=== PATIENT | female | born 1955 | race Caucasian/White ===

== ENCOUNTER 2017-02-17 23:27 | Emergency (ER) | payer OTHER ==
[~2017-02-17] VITALS: Ht 167.6 cm; Wt 82.6 kg
[~2017-02-17 23:27] MED LIST: ANAPROX DS550 M1 PO; ASPIRIN81 M1 PO; Bactrim,Septra DS 80 PO; COZAAR100 MG PO; COZAAR50 MG PO; GLUCOPHAGE500 MG PO; METFORMIN HCL500 MG PO; Motrin PO; NOHOMEMEDS; SIMVASTATIN5 MG PO; ZOLOFT100 MG PO
[2017-02-18 01:11] LABS: POINT-OF-CARE METER ID UU13113702
[2017-02-18] MEDS ORDERED: NORCO 5/3251 TABLET PO (01:13)
[2017-02-18 01:46] VITALS: BP 126/41
== END 2017-02-18 01:47 | disposition home or self-care (01) ==
LOC: EXP 23:27 → EME 23:27 → EXP 02-18 01:47
PROVIDERS: Physician Assistant
PROC: 3E0234Z Introduction of Serum, Toxoid and Vaccine into Muscle, Percutaneous Approach (ICD-10-PCS; principal; 2017-02-17)
DX: S82.002A Unspecified fracture of left patella, initial encounter for closed fracture (principal); S39.012A Strain of muscle, fascia and tendon of lower back, initial encounter; S80.212A Abrasion, left knee, initial encounter; W18.30XA Fall on same level, unspecified, initial encounter; Y92.89 Other specified places as the place of occurrence of the external cause; Z23 Encounter for immunization; E11.9 Type 2 diabetes mellitus without complications; I10 Essential (primary) hypertension; Z87.442 Personal history of urinary calculi; Z88.6 Allergy status to analgesic agent; Z79.84 Long term (current) use of oral hypoglycemic drugs
CPT/HCPCS: 73564; 82948; 93005; 99281; 99284

== ENCOUNTER 2017-12-14 21:00 | Emergency (ER) | payer OTHER ==
[~2017-12-14] VITALS: Ht 167.6 cm; Wt 82.5 kg
[~2017-12-14 21:00] MED LIST changes: +NORCO 5/3251 TABLET PO
[2017-12-14 21:47] LABS: HEMATOCRIT 36.8 % (36.0-46.0); HEMOGLOBIN 12.2 G/DL (11.9-15.5); MCH 29.5 PG (29.0-34.0); MCHC 33.2 G/DL (30.0-36.0); MCV 89.1 FL (83-99); PLATELET COUNT 345 K/uL (156-360); RBC DIS.WIDTH-SD 45.2 % (39-53); RED BLOOD COUNT 4.13 M/uL (3.80-5.20); WHITE BLOOD COUNT 6.7 K/uL (4.1-10.2)
[2017-12-14 22:03] LABS: ALBUMIN 4.5 g/dL (3.2-4.8)
[2017-12-14 22:04] LABS: CHLORIDE 104 mEq/L (99-109); POTASSIUM 4.2 mEq/L (3.7-5.4); SODIUM 142 mEq/L (136-147)
[2017-12-14 22:06] LABS: GLUCOSE 156 mg/dL (70-99); TOTAL PROTEIN 7.8 g/dL (6.4-8.3)
[2017-12-14 22:08] LABS: TOTAL BILIRUBIN 0.3 mg/dL (0.0-1.0)
[2017-12-14 22:09] LABS: ALKALINE PHOSPHATASE 87 IU/L (3-129)
[2017-12-14 22:10] LABS: CREATININE 0.8 mg/dL (0.6-1.3); GFR ESTIMATE (CALCULATED) > 59 mL/min/
[2017-12-14 22:11] LABS: AST (GOT) 16 IU/L (2-34); UREA NITROGEN (BUN) 13 mg/dL (9-23)
[2017-12-14 22:12] LABS: ALT (GPT) 14 IU/L (3-49)
[2017-12-14 22:13] LABS: LIPASE 15 U/L (1.0-51.0)
[2017-12-14 23:36] LABS: APPEARANCE CLEAR ((CLEAR)); BILIRUBIN NEGATIVE; BLOOD MODERATE; COLOR YELLOW ((YELLOW)); GLUCOSE (STRIP) NEGATIVE; KETONES NEGATIVE; LEUKOCYTES TRACE; NITRITE NEGATIVE; PROTEIN (STRIP) NEGATIVE; SPECIFIC GRAVITY 1.011 (1.000-1.030); UROBILINOGEN 0.2 MG/DL (0.2-1.0)
[2017-12-15 00:26] LABS: BACTERIA RARE /HPF; EPITHELIAL CELLS RARE /HPF; MUCUS NONE SEEN /LPF; RED BLOOD CELLS 0-5 /HPF (0-5); UCUL ADDED? NO; WHITE BLOOD CELLS 0-5 /HPF (0-5)
[2017-12-15] MEDS ORDERED: BENTYL20 MG PO (03:54)
[2017-12-15] MEDS ORDERED: ZOFRAN ODT8 MG PO (03:54)
[2017-12-15 04:19] VITALS: BP 126/80
== END 2017-12-15 04:20 | disposition home or self-care (01) ==
LOC: EXP 21:00 → EME 21:00 → EXP 12-15 04:20
DX: R10.11 Right upper quadrant pain (principal); R19.7 Diarrhea, unspecified; R11.0 Nausea; E11.9 Type 2 diabetes mellitus without complications; I10 Essential (primary) hypertension; F32.9 Major depressive disorder, single episode, unspecified; Z87.442 Personal history of urinary calculi; Z79.84 Long term (current) use of oral hypoglycemic drugs; Z79.82 Long term (current) use of aspirin; Z88.5 Allergy status to narcotic agent; Z88.8 Allergy status to other drugs, medicaments and biological substances
CPT/HCPCS: 74176; 76705; 80053; 81003; 83605; 83690; 85027; 87086; 99281; 99285; J1885; J2405; J7030

== ENCOUNTER → 2018-01-26 | Outpatient (CLI) | payer OTHER ==
[~2018-01-26] MED LIST changes: +BENTYL20 MG PO; +ZOFRAN ODT8 MG PO
== END | disposition home or self-care (01) ==
LOC: NUC 09:26
DX: R10.9 Unspecified abdominal pain (principal)
CPT/HCPCS: 78227; A9537; J2805